=== PATIENT | female | born 1965 | race Caucasian/White ===

== ENCOUNTER 2018-01-09 07:20 | Day surgery (SDC) | payer BC ==
[~2018-01-09] VITALS: Ht 165.1 cm; Wt 59.1 kg
[2018-01-09] MEDS ORDERED: WELLBUTRIN SR150 M1 PO (07:36)
[2018-01-09] MEDS ORDERED: FYAVOLV 1 MG-51 EACH PO (07:37)
[2018-01-09] MEDS ORDERED: LAMICTAL150 MG PO (07:37)
[2018-01-09] MEDS ORDERED: CELEXA40 MG PO (07:37)
[2018-01-09] MEDS ORDERED: AMITRIPTYLINE H10 M1 PO (07:39)
[2018-01-09] MEDS ORDERED: ADVIL200 MG PO (07:40)
[2018-01-09 07:57] VITALS: BP 139/85; PULSE 76; TEMP 98.2
[2018-01-09 09:20] VITALS: BP 140/78; PULSE 89; TEMP 97.9
[2018-01-09 09:30] VITALS: BP 126/78; PULSE 75
[2018-01-09 09:45] VITALS: BP 126/81; PULSE 75
[2018-01-09 16:47] VITALS: BP 123/87; PULSE 93
== END 2018-01-09 10:10 | disposition home or self-care (01) ==
LOC: SDCO 07:20
DX: Z12.11 Encounter for screening for malignant neoplasm of colon (principal); K59.00 Constipation, unspecified; K21.9 Gastro-esophageal reflux disease without esophagitis
CPT/HCPCS: OP; J2250; J2405; J3010; J7030

== ENCOUNTER 2018-07-13 21:46 | Emergency (ER) | payer BC ==
[~2018-07-13] VITALS: Ht 165.1 cm; Wt 56.8 kg
[2018-07-13 21:50] VITALS: BP 142/78; PULSE 95; TEMP 98.6
== END 2018-07-13 23:14 | disposition home or self-care (01) ==
LOC: COL.ER 21:46
DX: T16.2XXA Foreign body in left ear, initial encounter (principal); F41.9 Anxiety disorder, unspecified; W45.8XXA Other foreign body or object entering through skin, initial encounter

== ENCOUNTER → 2018-07-13 | Outpatient (CLI) | payer BC ==
[~2018-07-13] MED LIST: ADVIL200 MG PO; AMITRIPTYLINE H10 M1 PO; CELEXA40 MG PO; FYAVOLV 1 MG-51 EACH PO; LAMICTAL150 MG PO; WELLBUTRIN SR150 M1 PO
== END ==
LOC: COL.RAD 13:20
DX: M89.9 Disorder of bone, unspecified (principal)

== ENCOUNTER → 2020-05-10 | Outpatient (CLI) | payer BC | LOC: MC.RAD 04-27 15:30 | DX: Z12.31 Encounter for screening mammogram for malignant neoplasm of breast (principal) ==

== ENCOUNTER → 2022-05-09 | Outpatient (CLI) | payer BC | LOC: MC.RAD 10:30 | DX: Z12.31 Encounter for screening mammogram for malignant neoplasm of breast (principal) ==